=== PATIENT | male | born 1980 | race Caucasian/White ===

== ENCOUNTER 2016-06-04 12:18 | Emergency (ER) | payer SELFPAY ==
[~2016-06-04 12:18] MED LIST: CORTISPORIN TC10 ML OT; FLONASE ALLERG9.9 ML NS; MIRALAX 255 GM255 GM PO; NORCO 325 MG-51 TA1 PO
== END 2016-06-04 13:15 | disposition home or self-care (01) ==
LOC: ED 12:18
DX: S71.111A Laceration without foreign body, right thigh, initial encounter (principal); W31.2XXA Contact with powered woodworking and forming machines, initial encounter
CPT/HCPCS: 90715; A4550; A4649

== ENCOUNTER → 2018-01-14 | Outpatient (CLI) | payer OTHER ==
[2016-06-04 11:50] VITALS: BP 179/98
== END ==
LOC: RAD 16:40
DX: S62.336D Displaced fracture of neck of fifth metacarpal bone, right hand, subsequent encounter for fracture with routine healing (principal)